=== PATIENT | male | born 1990 | race Caucasian/White ===

== ENCOUNTER 2019-03-18 11:04 | Emergency (ER) | payer BC, OTHER | END 2019-03-18 13:02 | disposition home or self-care (01) | LOC: JERFT 11:04 ==

== ENCOUNTER 2023-03-18 10:42 | Emergency (ER) | payer BC, OTHER ==
[2023-03-18 10:50] VITALS: BP 123/76; PULSE 114; RESP 20; TEMP 98.3
[2023-03-18] MEDS ORDERED: LIDOCAINE 5% TOPICAL PATCH TP ONE (12:08)
[2023-03-18] MEDS ORDERED: ACETAMINOPHEN 500 MG TABLET (FP) PO ONE (12:08)
[2023-03-18] MEDS ORDERED: KETOROLAC TROMETHAMINE 30 MG/1 ML VIAL IM ONE (12:08)
[2023-03-18] MEDS ORDERED: LIDOCAINE 5% TOPICAL PATCH ONE (12:09)
[2023-03-18] MEDS ORDERED: KETOROLAC TROMETHAMINE 30 MG/1 ML VIAL ONE (12:09)
[2023-03-18] MEDS ORDERED: ACETAMINOPHEN 500 MG TABLET (FP) ONE (12:10)
[2023-03-18] MEDS ORDERED: LIDOCAINE PATCH REMOVAL MC ONE (22:00)
== END 2023-03-18 12:40 | disposition home or self-care (01) ==
LOC: JERFT 10:42
PROC: 3E0233Z Introduction of Anti-inflammatory into Muscle, Percutaneous Approach (ICD-10-PCS; principal; 2023-03-18)
DX: M54.50 Low back pain, unspecified (principal)
CPT/HCPCS: 99284-25